=== PATIENT | male | born 1935 | race Caucasian/White ===

== ENCOUNTER 2018-08-10 16:21 | Inpatient (IN) | payer MEDICARE | END 2018-08-12 12:08 | disposition home or self-care (01) | LOC: ER 16:21 → SUR 3N 08-11 01:07 → ED HOLD 20:49 | DX: J45.901 Unspecified asthma with (acute) exacerbation (principal); J96.10 Chronic respiratory failure, unspecified whether with hypoxia or hypercapnia; I48.91 Unspecified atrial fibrillation; E83.52 Hypercalcemia; F10.10 Alcohol abuse, uncomplicated; I10 Essential (primary) hypertension; J20.9 Acute bronchitis, unspecified; E11.9 Type 2 diabetes mellitus without complications ==